=== PATIENT | female | born 2000 | race Caucasian/White ===

== ENCOUNTER 2023-03-19 03:26 | Emergency (ER) | payer OTHER | END 2023-03-19 04:57 | disposition home or self-care (01) | LOC: ERS 03:26 | DX: S20.211A Contusion of right front wall of thorax, initial encounter (principal); W54.8XXA Other contact with dog, initial encounter; F17.290 Nicotine dependence, other tobacco product, uncomplicated | CPT/HCPCS: 71045 ==